=== PATIENT | female | born 1955 | race Caucasian/White ===

== ENCOUNTER 2019-09-23 09:10 | Inpatient (IN) | payer MEDICARE, MEDICAID ==
[~2019-09-23] VITALS: Ht 172.7 cm; Wt 69.8 kg
--- NOTE | ~2019-09-23 | OR ---
[facility] [address] [place], [place] [address] [place] DATE OF OPERATION: SURGEON: Radha Lua MD RECREATION PROGRAM COORDINATOR: Chidi Wills MD. PREOPERATIVE DIAGNOSES: Cystocele, rectocele, stress incontinence. POSTOPERATIVE DIAGNOSES: Cystocele, rectocele, stress incontinence with enterocele. PROCEDURES PERFORMED: Cystocele repair, sling procedure, cystoscopy, rectocele repair with enterocele resection. ANESTHESIA: Spinal with IV sedation. ESTIMATED BLOOD LOSS: 100 mL. DRAINS: Cobb catheter. PACKS: Vaginal. INDICATIONS AND FINDINGS: The patient is a 64-year-old female, 4, para 4, has been having increasing vaginal bulging and pressure as well as stress incontinence and desired surgical correction. At the time of surgery, she had a grade 2 cystocele and grade 2 rectocele. There was a little bit more uterine prolapse appreciated than when she was in the office, but it was not severe. At the time of her surgery, she did have an enterocele. DESCRIPTION OF PROCEDURE: The patient was prepped and draped in the dorsal lithotomy position. A weighted speculum was placed and the anterior wall of the vagina was grasped with Allis clamps and incised in the midline. This was done from the mid urethra down to the upper aspect of the cervix. The vaginal tissue was from the underlying tissue with a PATIENT NAME: DEBO RYAN OPERATIVE REPORT DATE OF : 53 REPORT #: [id number] PHYSICIAN: RADHA LUA MD PCP: GAMALIEL VINCENT MD REPORT IS CONFIDENTIAL AND NOT TO BE RELEASED WITHOUT AUTHORIZATION [facility] [address] [place], [place] [address] [place] combination of blunt and sharp dissection. The portion next to the urethra was taken out laterally behind the pubic bone as well. There was no evidence of really any pubovaginal fascia. It was very poor quality. Plication was done of this tissue in the midline with interrupted sutures of 0 Vicryl. Following this, there did appear to be good reduction of the defect. The sling was then placed with the trocars. Incisions were made over the obturator notches on each side with a knife. The trocars were then introduced at the lower most medial aspect of the notch. This was immediately taken behind the pubic bone and exiting into the upper aspect of the upper lateral aspect of the vaginal incision. This was done bilaterally. Following this, cystoscopy was done. She did receive IV fluorescein. The Cobb catheter was removed and the cystoscope placed. The 70-degree scope was used. There was quite a bit of bunching of the bladder inferiorly, though there was no obvious sutures seen. There was no evidence of any incursion of the trocars into the bladder. The ureters were seen and had free spillage of the fluorescein stained urine. The bladder was then overfilled in an effort to look at the very bottom of the irregularity in the posterior aspect and there were no sutures seen within the bladder at all. Had there was never any blood in the bladder as well. Following this, the cystoscopy was complete and the bladder drained and the Cobb catheter replaced. The sling was then attached to the trocars and was brought through both of the openings in the obturator notch. Care was taken to have appropriate tension in the mid urethra. The covering of the sling was then removed. Following this, the vaginal mucosa was trimmed a large amount as there was quite a bit of redundancy anteriorly. The vaginal mucosa was then closed with a running suture of 2-0 Vicryl from the mid urethra down to near the cervix. Following this, the rectocele repair was begun. A triangle of tissue was removed from the perineal body. The vaginal mucosa was then underlined undermined and incised in the midline to the apex of the vagina. At that point, however, the enterocele was entered. The vaginal mucosa was then from the underlying tissue with a combination of blunt and sharp dissection. The enterocele sac was from the vaginal apex and from the rectum. Following this, 2-0 chromic was used in a pursestring manner to close the enterocele sac and the excess excised sharply. Following this, traditional rectocele repair was done by plicating the levators in the midline. Interrupted sutures of 0 Vicryl were used for this. It appeared that there was good reduction of the defect at that point. A rectal examination was done, which revealed no sutures compromising the rectal lumen. The vaginal mucosa was then trimmed quite a bit. There was some excess near the apex, particularly on her right because of the enterocele resection. This was repaired separately with a running suture of the 2-0 Vicryl. The vaginal mucosa was then trimmed in the mid and lower portion quite a bit because of the redundancy. The vaginal mucosa was then closed with a running suture of the 2-0 Vicryl. Following this, the perineal body was rebuilt with interrupted sutures of the 2-0 Vicryl. The posterior fourchette was recreated with a running suture of the 2-0 Vicryl. The skin incisions were closed using with subcuticular sutures of the 2-0 Vicryl. The obturator notch incisions were closed with interrupted sutures of the 3-0 Vicryl Rapide. Following this, the vagina PATIENT NAME: DEBO RYAN OPERATIVE REPORT DATE OF : 53 REPORT #: [id number] PHYSICIAN: RADHA LUA MD PCP: GAMALIEL VINCENT MD REPORT IS CONFIDENTIAL AND NOT TO BE RELEASED WITHOUT AUTHORIZATION [facility] [address] [place] [id number] [place] was reexamined. There was no evidence of any ongoing bleeding. There was good length and caliber. The vaginal canal was then packed with Premarin-coated gauze. All sponge and needle counts were correct. She tolerated the procedure well and was taken to the recovery room in good condition. MD JESS Parr/MODL /[id number] cc: MD Dr. Luis A Alston Copies: CHIDI WILLS MD ~ PATIENT NAME: DEBO RYAN OPERATIVE REPORT DATE OF : 53 REPORT #: [id number] PHYSICIAN: RADHA LUA MD PCP: GAMALIEL VINCENT MD REPORT IS CONFIDENTIAL AND NOT TO BE RELEASED WITHOUT AUTHORIZATION
--- OUTSIDE RECORDS SUMMARY | ~2019-09-23 | XMS | Encounter Summary ---
Demographics + + + | Address | [address] | | | [place] [address] | + + + | Home Phone | | + + + | Preferred Language | Unknown | + + + | Marital Status | | + + + | Evangelical Affiliation | Unknown | + + + | Race | Unknown | + + + | Ethnic Group | Unknown | + + + Author + + + | Author | [facility] | | | and [place] | + + + | Organization | [facility] | | | and [place] | + + + | Address | Unknown | + + + | Phone | Unavailable | + + + Support + + +---------+ + | Name | Relationship | Address | Phone | + + +---------+ + | Tarun Castorena | ECON | Unknown | | + + +---------+ + Care Team Providers + +------+ + | Care Nutrition Representative Name | Role | Phone | + +------+ + PCP | Unavailable | + +------+ + Reason for Visit + + + | Reason | Comments | + + + | Procedure | change provider | + + + Encounter Details +--------+ + + + + | Date | Type | Department | Care Team | Description | +--------+ + + + + | 08/02/ | Telephone | [facility] | Josesito Sebastian MD | Procedure (change | | 2017 | | GASTROENTEROLOGY | [address], [place] | provider ) | | | | [address] [place] | [address] [place], [place] | | | | | [address] [place], [place] | [address] | | | | | [address] | | | | | | [phone] | | | +--------+ + + + + Social History + +-------+ +--------+------+ | Tobacco Use | Types | Packs/Day | Years | Date | | | | | Used | | + +-------+ +--------+------+ | Never Assessed | | | | | + +-------+ +--------+------+ + + + | Sex Assigned at | Date Recorded | | | | + + + | Not on file | | + + + + + + + | Job Start Date | Occupation | Industry | + + + + | Not on file | Not on file | Not on file | + + + + + + + + | Travel History | Travel Start | Travel End | + + + + + + | No recent travel history available. | + + documented as of this encounter Plan of Treatment Not on filedocumented as of this encounter Visit Diagnoses + + | Diagnosis | + + | Special screening for malignant neoplasms, colon | + + | Hx of colonic polyps Personal history of colonic polyps | + + documented in this encounter"
--- OUTSIDE RECORDS SUMMARY | ~2019-09-23 | XMS | Encounter Summary ---
Demographics + + + | Address | [address] | | | [place] [address] | + + + | Home Phone | | + + + | Preferred Language | Unknown | + + + | Marital Status | | + + + | Druze Affiliation | Unknown | + + + | Race | Unknown | + + + | Ethnic Group | Unknown | + + + Author + + + | Author | [facility] | | | and [place] | + + + | Organization | [facility] | | | and [place] | [...] Team Providers + +------+ + | Care Winding Department Supervisor Name | Role | Phone | + +------+ + | Jeny Owens NP | PCP | | + +------+ + Reason for Visit + + + | Reason | Comments | + + + | Constipation | | + + + Encounter Details +--------+ + + + + | Date | Type | Department | Care Team | Description | +--------+ + + + + | 10/30/ | Telephone | [facility] | Josesito Sebastian MD | Constipation | | 2017 | | GASTROENTEROLOGY | [address], [place] | | | | | [address] [place] | [address] [place], [place] | | | | | [address] [place], [place] | [address] | | | | | [address] | | | | | | [phone] | | | +--------+ + + + + Social History + + + +--------+------+ | Tobacco Use | Types | Packs/Day | Years | Date | | | | | Used | | + + + +--------+------+ | Current Every Day | Cigarettes | | | | | Smoker | | | | | + + + +--------+------+ + + +---------+ + | Alcohol Use | Drinks/Week | oz/Week | Comments | + + +---------+ + | No | | | | + + +---------+ + + + + | Sex Assigned at [...] filedocumented as of this encounter Visit Diagnoses Not on filedocumented in this encounter"
--- OUTSIDE RECORDS SUMMARY | ~2019-09-23 | XMS | Encounter Summary ---
Demographics + + + | Address | [address] | | | [place] [address] | + + + | Home Phone | | + + + | Preferred Language | Unknown | + + + | Marital Status | | + + + | Hinduism Affiliation | Unknown | + + + | Race | Unknown | + + + | Ethnic Group | Unknown | + + + Author + + + | Author | [facility] | | | and [place] | + + + | Organization | [facility] | | | and [place] [...] Team Providers + +------+ + | Care Right Of Way Buyer Name | Role | Phone | + +------+ + | Pcp, Prov Inactive | PCP | | + +------+ + Reason for Visit + + + | Reason | Comments | + + + | Appointment | | + + + Encounter Details +--------+ + + + + | Date | Type | Department | Care Team | Description | +--------+ + + + + | 07/20/ | Telephone | [facility] [place] | Harri, Josesito E, MD | Appointment | | 2017 | | GASTROENTEROLOGY | [address], [place] | | | | | [address] [place] | [address] [place], [place] | | | | | [address] [place], [place] | [address] | | | | | [address] | | | | | | [phone] | | | +--------+ + + + [...]
--- OUTSIDE RECORDS SUMMARY | ~2019-09-23 | XMS | Encounter Summary ---
Demographics + + + | Address | [address] | | | [place] [address] | + + + | Home Phone | | + + + | Preferred Language | Unknown | + + + | Marital Status | | + + + | Religion Affiliation | Unknown | + + + | Race | Unknown | + + + | Ethnic Group | Unknown | + + + Author + + + | Author | [facility] | | | and [place] | + + + | Organization | [facility] | | | and [place] [...] Team Providers + +------+ + | Care Supervisor Felling Bucking Name | Role | Phone | + +------+ + PCP | Unavailable | + +------+ + Reason for Visit + + + | Reason | Comments | + + + | Procedure | colon screen | + + + Encounter Details +--------+ + + + + | Date | Type | Department | Care Team | Description | +--------+ + + + + | 04/24/ | Telephone | [facility] | Андрей Yeung | Procedure (colon | | 2017 | | GASTROENTEROLOGY | MD [address] | screen ) | | | | [address] [place] | [address] [place] | | | | | [address] [place] | [place] [address] | | | | | [address] | [phone] | | | | | [phone] | | | +--------+ + + + [...] | Special screening for malignant neoplasms, colon - Primary | + + | Personal history of colonic polyps | + + | Hx of colonic polyps Personal history of colonic polyps | + + documented in this encounter"
--- OUTSIDE RECORDS SUMMARY | ~2019-09-23 | XMS | Encounter Summary ---
Demographics + + + | Address | [address] | | | [place] [address] | + + + | Home Phone | | + + + | Preferred Language | Unknown | + + + | Marital Status | | + + + | Faith Affiliation | Unknown | + + + | Race | Unknown | + + + | Ethnic Group | Unknown | + + + Author + + + | Author | [facility] | | | and [place] | + + + | Organization | [facility] | | | and [...] Team Providers + +------+ + | Care Health Care Facility Administrator Name | Role | Phone | + +------+ + PCP | Unavailable | + +------+ + Reason for Visit Auth/Cert +--------+--------+ + + + + | Status | Reason | Specialty | Diagnoses / | Referred By | Referred To | | | | | Procedures | Contact | Contact | +--------+--------+ + + + + | | | | Diagnoses | | | | | | | Special | | | | | | | screening | | | | | | | for | | | | | | | malignant | | | | | | | neoplasms, | | | | | | | colon | | | | | | | Personal | | | | | | | history of | | | | | | | colonic | | | | | | | polyps | | | | | | | Chronic | | | | | | | constipation | | | | | | | Blood in | | | | | | | stool | | | | | | | Special | | | | | | | screening | | | | | | | for | | | | | | | malignant | | | | | | | neoplasms, | | | | | | | colon | | | | | | | (Z12.11), | | | | | | | Personal | | | | | | | history of | | | | | | | colonic | | | | | | | polyps | | | | | | | (Z86.010); | | | | | | | Chronic | | | | | | | Constipation | | | | | | | (R19.7); | | | | | | | Blood in | | | | | | | Stool | | | | | | | (k92.1) | | | | | | | | | | | | | | Procedures | | | | | | | NE | | | | | | | COLONOSCOPY | | | | | | | FLX DX | | | | | | | W/COLLJ SPEC | | | | | | | WHEN PFRMD | | | | | | | NE | | | | | | | COLONOSCOPY | | | | | | | W/BIOPSY | | | | | | | SINGLE/MULTI | | | | | | | PLE NE | | | | | | | COLSC FLX | | | | | | | W/RMVL OF | | | | | | | TUMOR POLYP | | | | | | | LESION SNARE | | | | | | | TQ | | | | | | | COLONOSCOPY | | | +--------+--------+ + + + + Encounter Details +--------+---------+ + + + | Date | Type | Department | Care Team | Description | +--------+---------+ + + + | 05/17/ | Surgery | [facility] | Josesito Sebastian MD | COLONOSCOPY | | 2017 | | MED CTR [facility] INTRA OP | [address], [place] | | | | | [address] | [address] [place], [place] | | | | | [place], [place] | [address] | | | | | [address] | | | | | | [phone] | | | +--------+---------+ + + + Social History + + [...] + + documented as of this encounter Last Filed Vital Signs + + + + + | Vital Sign | Reading | Time Taken | Comments | + + + + + | Blood Pressure | 127/74 | 05/17/2017 2:15 PM | | | | | PDT | | + + + + + | Pulse | 64 | 05/17/2017 2:15 PM | | | | | PDT | | + + + + + | Temperature | 37 C (98.6 F) | 05/17/2017 11:30 AM | | | | | PDT | | + + + + + | Respiratory Rate | 14 | 05/17/2017 2:15 PM | | | | | PDT | | + + + + + | Oxygen Saturation | 99% | 05/17/2017 2:15 PM | | | | | PDT | | + + + + + | Inhaled Oxygen | - | - | | | Concentration | | | | + + + + + | Weight | 62.2 kg (137 lb 3.2 | 05/17/2017 11:30 AM | | | | oz) | PDT | | + + + + + | Height | 172.7 cm (5' 8") | 05/17/2017 11:30 AM | | | | | PDT | | + + + + + | Body Mass Index | 20.86 | 05/17/2017 11:30 AM | | | | | PDT | | + + + + + documented in this encounter Discharge Instructions Instructions Cici Koenig RN - 05/17/2017 Recovery After Procedural Sedation (Adult) You have been given medicine by vein to make you sleep during your surgery. This may have i ncluded both a pain medicine and sleeping medicine. Most of the effects have worn off. But y ou may still have some drowsiness for the next 6 to 8 hours. Home care Follow these guidelines when you get home: For the next 8 hours, you should be watched by a responsible adult. This person should m nicolette sure your condition is not getting worse. Don't drink any alcoholfor the next [address], operate dangerous machinery, or make important business or personal decisio nsduring the next 24 hours. Note: Your healthcare provider may tell you not to take any medicine by mouth for pain or s leep in the next 4 hours. These medicines may react with the medicines you were given in the hospital. This could cause a much stronger response than usual. Follow-up care Follow up with your healthcare provider if you are not alert and back to your usual level o f activity within 12 hours. When to seek medical advice Call your healthcare provider right away if any of these occur: Drowsiness gets worse Weakness or dizziness gets worse Repeated vomiting You can't be awakened Date Last Reviewed: 07/11/201619991238-4158 [employer]. [address] [place] [address], [place] [address]. All righ ts reserved. This information is not intended as a substitute for professional medical care. Always follow your healthcare professional's instructions. documented in this encounter Medications at Time of Discharge + +-----+ +---------+ + + | Medication | Sig | Dispensed | Refills | Start | End Date | | | | | | Date | | + +-----+ +---------+ + + | levothyroxine | | | 0 | 03/19/20 | | | (SYNTHROID, | | | | 17 | | | LEVOTHROID) 25 mcg | | | | | | | tablet | | | | | | + +-----+ +---------+ + + documented as of this encounter Plan of Treatment Not on filedocumented as of this encounter Procedures + +--------+ + + + | Procedure Name | Priori | Date/Time | Associated Diagnosis | Comments | | | ty | | | | + +--------+ + + + | COLONOSCOPY | | 05/17/2017 | Special screening | | | | | 12:31 PM | for malignant | | | | | PDT | neoplasms, colon | | | | | | (Z12.11), Personal | | | | | | history of colonic | | | | | | polyps (Z86.010); | | | | | | Chronic Constipation | | | | | | (R19.7); Blood in | | | | | | Stool (k92.1) | | + +--------+ + + + | COLONOSCOPY | Routin | 05/17/2017 | | Results for this | | | e | 12:21 PM | | procedure are in the | | | | PDT | | results section. | + +--------+ + + + | SURGICAL PATHOLOGY | Routin | 05/17/2017 | | Results for this | | EXAM | e | 12:00 AM | | procedure are in the | | | | PDT | | results section. | + +--------+ + + + documented in this encounter Results COLONOSCOPY (05/17/2017 12:21 PM PDT) + + | Specimen | + + | | + + + +--------- -----+ | Narrative | Performe d At | + +--------- -----+ | | [facility] | | GastroenterologyPatient Name: Porsha CastorenaProcedure Date: 05/17/2017 | PROVAT[place] N | | 12:21 PMMRN: [id number] #: [id number] of : | | | 4Admit Type: AmbulatoryAge: 62Room: [facility] 01Gender: FemaleNote | | | Status: FinalizedAttending MD: Josesito Sebastian , MDProcedure: | | | ColonoscopyIndications: Abnormal barium enemaProviders: | | | Josesito Sebastian MD, Radha Howell RN, Marisela | | | BLAS PinedaMedicines: Midazolam | | | 6 mg IV, Meperidine 100 mg IV, Oxygen 4 | | | liters/min nasocannulaComplications: No immediate complications. | | | Estimated blood loss: None.Procedure: Pre-Anesthesia | | | Assessment: - Prior to the procedure, a History and Physical was | | | performed, and patient medications, allergies and | | | sensitivities were reviewed. The patient's tolerance of | | | previous anesthesia was reviewed. - Prior to the procedure, a | | | History and Physical was performed, and patient medications and | | | allergies were reviewed. The patient is competent. The risks | | | and benefits of the procedure and the sedation options and | | | risks were discussed with the patient. All questions were | | | answered and informed consent was obtained. Patient identification and | | | proposed procedure were verified by the physician, the nurse | | | and the coordinate measuring machine technician in the endoscopy suite. Mental Status | | | Examination: alert and oriented. Airway Examination: normal | | | oropharyngeal airway and neck mobility and Mallampati Class II | | | (the uvula but not tonsillar pillars visualized). Respiratory | | | Examination: clear to auscultation. CV Examination: normal. | | | Prophylactic Antibiotics: The patient does not require | | | prophylactic antibiotics. Prior Anticoagulants: The patient has | | | taken no previous anticoagulant or antiplatelet agents. ASA Grade | | | Assessment: II - A patient with mild systemic disease. After | | | reviewing the risks and benefits, the patient was deemed in | | | satisfactory condition to undergo the procedure. The anesthesia | | | plan was to use moderate sedation / analgesia (conscious | | | sedation). Immediately prior to administration of medications, | | | the patient was re-assessed for adequacy to receive sedatives. | | | The heart rate, respiratory rate, oxygen saturations, blood | | | pressure, adequacy of pulmonary ventilation, and response to | | | care were monitored throughout the procedure. The physical | | | status of the patient was re-assessed after the procedure. - | | | After reviewing the risks and benefits, the patient was deemed in | | | satisfactory condition to undergo the procedure. - | | | Immediately prior to administration of medications, the patient was | | | re-assessed for adequacy to receive sedatives. - The heart | | | rate, respiratory rate, oxygen saturations, blood pressure, | | | adequacy of pulmonary ventilation, and response to care were monitored | | | throughout the procedure. - The physical status of the | | | patient was re-assessed after the procedure. After I obtained | | | informed consent, the scope was passed under direct vision. | | | Throughout the procedure, the patient's blood pressure, pulse, | | | and oxygen saturations were monitored continuously. The Colonoscope | | | was introduced through the anus and advanced to the cecum, | | | identified by the appendiceal orifice, ileocecal valve and | | | palpation. The colonoscopy was technically difficult and | | | complex due to significant looping and a tortuous colon. | | | Successful completion of the procedure was aided by using | | | manual pressure, straightening and shortening the scope to obtain | | | bowel loop reduction and using scope torsion. The patient tolerated | | | the procedure well. The quality of the bowel preparation was | | | adequate to identify polyps.Findings: The perianal and | | | digital rectal examinations were normal. Pertinent negatives | | | include normal sphincter tone and no palpable rectal lesions. | | | The sigmoid colon, descending colon and transverse colon were | | | significantly redundant. Two sessile polyps were found in the | | | proximal descending colon and distal ascending colon. The | | | polyps were small in size. These polyps were removed with a hot | | | snare. Resection and retrieval were complete. Verification of | | | patient identification for the specimen was done. Estimated | | | blood loss: none. The exam was otherwise without abnormality. | | | The retroflexed view of the distal rectum and anal verge was | | | normal and showed no anal or rectal abnormalities.Impression: | | | - Redundant colon. - Two small polyps in the proximal | | | descending colon and in the distal ascending colon, removed | | | with a hot snare. Resected and retrieved. - The examination was | | | otherwise normal. - The distal rectum and anal verge are normal | | | on retroflexion view.Recommendation: - Patient has a contact | | | number available for emergencies. The signs and symptoms of | | | potential delayed complications were discussed with the | | | patient. Return to normal activities tomorrow. Written discharge | | | instructions were provided to the patient. - Discharge | | | patient to home (ambulatory). - Mechanical soft diet for 3 days. | | | - Continue present medications. - No aspirin, ibuprofen, | | | naproxen, or other non-steroidal anti-inflammatory drugs for 7 | | | days after polyp removal. - Await pathology results. - | | | Repeat colonoscopy for surveillance based on pathology results and for | | | surveillance of multiple polyps. - Return to primary | | | care physician as previously scheduled. - Telephone GI clinic | | | for pathology results in 1 week. - Telephone GI clinic if | | | symptomatic.Josesito Sebastian MD05/17/2017 1:18:23 PMThis report has been | | | signed electronically.Number of Addenda: 0Note Initiated On: | | | 05/17/2017 12:21 PMScope Withdrawal Time: 0 hours 15 minutes 32 seconds | | | Total Procedure Duration: 0 hours 24 minutes 14 seconds Scope In: | | | 12:42:58 PMScope Out: 1:07:12 PM [facility] | | | [place], [address] [place] [address] | | | anti-inflammatory drugs for 7 days after polyp removal. | | | - Await pathology results. | | | - Repeat colonoscopy for surveillance based on pathology results and for | | | surveillance of multiple polyps. | | | - Return to primary care physician as previously scheduled. | | | - Telephone GI clinic for pathology results in 1 week. | | | - Telephone GI clinic if symptomatic. | | |Josesito Sebastian MD | | |05/17/2017 1:18:23 PM | | |This report has been signed electronically. | | |Number of Addenda: 0 | | |Note Initiated On: 05/17/2017 12:21 PM | | |Scope Withdrawal Time: 0 hours 15 minutes 32 seconds | | |Total Procedure Duration: 0 hours 24 minutes 14 seconds | | |Scope In: 12:42:58 PM | | |Scope Out: 1:07:12 PM | | | [facility], [address] [place] [address] | | | [id number] | | + +--------- -----+ + +---------+ + + | Performing | Address | City/State/Zipcode | Phone Number | | Organization | | | | + +---------+ + + | [facility] | | | | + +---------+ + + Surgical Pathology Exam (05/17/2017 12:00 AM PDT) + + | Specimen | + + | | + + + + + | Narrative | Performed At | + + + | SPECIMEN(S): A ASCENDING COLON POLYP SPECIMEN(S): B DESCENDING | [facility] | | COLON POLYP SPECIMEN SOURCE: A. ASCENDING COLON POLYP B. DESCENDING | [facility] | | COLON POLYP CLINICAL HISTORY: Z12.11 (encounter for screening for | | | malignant neoplasm of colon), Z86.010 (personal history of colonic | | | polyps), R19.7 (diarrhea, unspecified), K92.1 (melena) MICROSCOPIC | | | DESCRIPTION: Histologic sections of all submitted blocks are examined | | | by light microscopy. These findings, together with the gross | | | examination, support the pathologic diagnosis. FINAL PATHOLOGIC | | | DIAGNOSIS: A. Colon, ascending polyp, biopsy: - Tubular adenoma. | | | B. Colon, descending polyp, biopsy: - Hyperplastic polyp. | | | CLR:[facility]:C2NR GROSS DESCRIPTION: The specimen is received in two | | | parts. A. The specimen is labeled "Porsha Castorena" and | | | designated "ascending colon polyp" on the requisition. Received in | | | formalin is one red colored tissue fragment, it measures 0.3 x 0.5 cm. | | | The specimen is inked in blue and bisected, all into (A1). B. The | | | specimen is labeled "Raffaele, Porsha Annemarie" and designated "descending | | | colon polyp" on the requisition. Received in formalin is one pink | | | colored tissue fragment, it measures 0.4 x 0.55 cm, all into (B1). | | | yt:CLR:[facility] PERFORMING LABORATORY: Tissue processing and slide | | | preparation were performed by [facility], [address] [place] [address], | | | [address], [place] [address] (Computer Methods Analyst: Mook aKng M.D. | | | [place]#: [id number]). Professional interpretation was performed by | | | [facility], [address] [place] [address], [address], [place] [address] | | | (Computer Methods Analyst: Mook Kang M.D.; [facility]#: [id number]). | | | Diagnostician: Stuart Bruno MD Pathologist Electronically | | | Signed 05/18/2017 | | + + + + +---------+ + + | Performing | Address | City/State/[facility] Centercode | Phone Number | | Organization | | | | + +---------+ + + | [facility] | | | | | [facility] | | | | + +---------+ + + documented in this encounter Visit Diagnoses Not on filedocumented in this encounter Administered Medications + +---------+ +------+-------+--------+ | Medication Order | MAR | Action | Dose | Rate | Site | | | Action | Date | | | | + +---------+ +------+-------+--------+ | lactated ringers (LR) infusion | New Bag | 05/17/20 | | 100 | Right | | at 100 mL/hr, Intravenous, | | 17 12:07 | | mL/hr | Arm | | CONTINUOUS, Starting Cindy 05/17/17 | | PM PDT | | | | | at 1230, Pre-op | | | | | | + +---------+ +------+-------+--------+ +---+---+ | | | +---+---+ + +-------+ +--------+---+---+ | meperidine (DEMEROL) 100 mg/mL | Given | 05/17/20 | 100 mg | | | | injection PRN, Starting Cindy | | 17 12:35 | | | | | 05/17/17 at 1235 | | PM PDT | | | | + +-------+ +--------+---+---+ +---+---+ | | | +---+---+ + +-------+ +------+---+---+ | midazolam (VERSED) 5 mg/mL | Given | 05/17/20 | 1 mg | | | | injection PRN, Starting Cindy | | 17 12:48 | | | | | 05/17/17 at 1238 | | PM PDT | | | | + +-------+ +------+---+---+ +-------+ +------+---+---+ | Given | 05/17/20 | 1 mg | | | | | 17 12:45 | | | | | | PM PDT | | | | +-------+ +------+---+---+ | Given | 05/17/20 | 2 mg | | | | | 17 12:43 | | | | | | PM PDT | | | | +-------+ +------+---+---+ + +---+ | | | + +---+ | ondansetron (ZOFRAN) injection | | | 4 mg 4 mg, Oral, EVERY 4 HOURS | | | PRN, Nausea, Vomiting, Starting | | | Cindy 05/17/17 at 1317, | | | Recovery/Phase I | | + +---+ | | | + +---+ documented in this encounter
--- OUTSIDE RECORDS SUMMARY | ~2019-09-23 | XMS | Encounter Summary ---
Demographics + + + | Address | [address] | | | [place] [address] | + + + | Home Phone | | + + + | Preferred Language | Unknown | + + + | Marital Status | | + + + | Catholic Affiliation | Unknown | + + + | Race | Unknown | + + + | Ethnic Group | Unknown | + + + Author + + + | Author | [facility] | | | and [place] | + + + | Organization | [facility] | | | and [place] [...] Team Providers + +------+ + | Care Inspection Engineer Name | Role | Phone | + [...] | | | | | | | [place] | | | | | | | COLONOSCOPY | | | | | | | FLX DX | | | | | | | W/COLLJ SPEC | | | | | | | WHEN PFRMD | | | | | | | [place] | | | | | | | COLONOSCOPY | | | | | | | W/BIOPSY | | | | | | | SINGLE/MULTI | | | | | | | PLE [place] | | | | | | | COLSC FLX | | | | | | | W/RMVL OF | | | | | | | TUMOR POLYP | | | | | | | LESION SNARE | | | | | | | TQ | | | | | | | COLONOSCOPY | | | +--------+--------+ + + + + Encounter Details +--------+ + + + + | Date | Type | Department | Care Team | Description | +--------+ + + + + | 05/17/ | Hospital | [facility] | Josesito Sebastian MD | Special screening | | 2017 | Encounter | MED CTR MP INTRA OP | [address], [place] | for malignant | | | | [address] | [address] [place], [place] | neoplasms, colon | | | | [place], [place] | [address] | (Primary Dx); Hx of | | | | [address] | | colonic polyps | | | | [phone] | | | +--------+ + + + [...] documented in this encounter Discharge Instructions Instructions Ccii Koenig RN - 05/17/2017 Recovery After Procedural [...] You can't be awakened Date Last Reviewed: 07/11/201619997284-1592 [employer]. [address] [place], [place] [address]. All righ ts reserved. This information is [...] At | + +--------- -----+ | | [facility] | | GastroenterologyPatient Name: Porsha RamosgraceProcednanette Date: 05/17/2017 | PROVATIO N | | 12:21 PMMRN: [id number] #: [id number] of : | | | 4Admit Type: AmbulatoryAge: 62[facility]Gender: FemaleNote | | | Status: FinalizedAttending MD: PATRIC Bardalesrocedure: | | | ColonoscopyIndications: Abnormal barium enemaProviders: [...] the nurse | | | and the hydraulic technician in the endoscopy suite. Mental Status [...] | | 12:42:58 PMScope Out: 1:07:12 PM [facility] | | | [place], [address] [place] [address] | | | anti-inflammatory drugs for 7 [...] |Scope Out: 1:07:12 PM | | | [facility], [address] [place] | | | [address] | | + +--------- -----+ + +---------+ [...] ASCENDING COLON POLYP SPECIMEN(S): B DESCENDING | [facility] | | COLON POLYP SPECIMEN SOURCE: [...] biopsy: - Hyperplastic polyp. | | | CLR:[facility]:C2NR GROSS DESCRIPTION: The specimen is received [...] The | | | specimen is labeled "[place], Porsha Annemarie" and designated "descending | | | colon polyp" on the requisition. Received in formalin is one pink | | | colored tissue fragment, it measures 0.4 x 0.55 cm, all into (B1). | | | yt:CLR:[facility] PERFORMING LABORATORY: Tissue processing and slide | | | preparation were performed by [facility], | | | [address], [place] [address] (Nutrition And Dietetics Instructor: Mook Kang M.D. | | | CLIA#: [id number]). Professional interpretation was performed by | | | [facility], [address], [address], [place] [address] | | | (Nutrition And Dietetics Instructor: Mook Kang M.D.; CLIA#: [id number]). | | | Diagnostician: Stuart Bruno MD [...] + documented in this encounter Visit Diagnoses + + | Diagnosis | + + | Special screening for malignant neoplasms, colon - Primary | + + | Hx of colonic polyps Personal history of colonic polyps | + + documented in this encounter Administered Medications + +---------+ [...] | Arm | | CONTINUOUS, Starting Cindy 8/24/17 | | PM PDT | | | [...] PRN, Nausea, Vomiting, Starting | | | [facility] 05/17/17 at 1317, | | | Recovery/Phase I | | + +---+ | | | + +---+ documented in this encounter
--- OUTSIDE RECORDS SUMMARY | ~2019-09-23 | XMS | Encounter Summary ---
Demographics + + + | Address | [address] | | | [place] [address] | + + + | Home Phone | | + + + | Preferred Language | Unknown | + + + | Marital Status | | + + + | Restorationist Affiliation | Unknown | + + + | Race | Unknown | + + + | Ethnic Group | Unknown | + + + Author + + + | Author | [facility] | | | and [place] | + + + | Organization | [facility] | | [...] Team Providers + +------+ + | Care Livestock Auctioneer Name | Role | Phone | + [...] [place] | | | | | [address] | [place] [address] | | | | | [address] | [phone] | | | | | [phone] | | | +--------+ + + + [...]
--- OUTSIDE RECORDS SUMMARY | ~2019-09-23 | XMS | Encounter Summary ---
Demographics + + + | Address | [address] | | | [place] [address] | + + + | Home Phone | | + + + | Preferred Language | Unknown | + + + | Marital Status | | + + + | Druze Affiliation | Unknown | + + + | Race | Unknown | + + + | Ethnic Group | Unknown | + + + Author + + + | Author | [facility] | | | and [place] | + + + | Organization | [facility] | | | and [place] [...] Team Providers + +------+ + | Care Industrial Service Technician Name | Role | Phone | + [...] | | | | | | | MD | | | | | | | COLONOSCOPY | | | | | | | FLX DX | | | | | | | W/COLLJ SPEC | | | | | | | WHEN PFRMD | | | | | | | MD | | | | | | | COLONOSCOPY | | | | | | | W/BIOPSY | | | | | | | SINGLE/MULTI | | | | | | | PLE MD | | | | | | | [...] + + | 05/17/ | Hospital | [facility] | Josesito Sebastian MD | Special screening | | 2017 | Encounter | MED CTR MP INTRA OP | [address], [place] | for malignant | | | | [address] | [address] [place], [place] | neoplasms, colon | | | | [place], [place] | [address] | (Primary Dx); Hx of | | | | [address] | | colonic polyps | | | | [phone] | | | +--------+ + + + [...] You can't be awakened Date Last Reviewed: 07/11/201619999331-[address] [employer] [place], [place] [address]. All righ ts reserved. This information is [...] | PROVATIO N | | 12:21 PMMRN: [id number] #: [id number] of : | | | 4Admit Type: AmbulatoryAge: 62[facility]Gender: FemaleNote | | | [...] the nurse | | | and the geotechnicial properties technician in the endoscopy suite. Mental Status [...] | | 12:42:58 PMScope Out: 1:07:12 PM [facility] | | | [place], [address] [place] [address] | | | anti-inflammatory drugs for 7 [...] Out: 1:07:12 PM | | | [facility], [address] [place] | | | [address] | | + +--------- -----+ + +---------+ [...] biopsy: - Hyperplastic polyp. | | | CLR:[facility]:C2NR GROSS DESCRIPTION: The specimen is received in [...] cm, all into (B1). | | | yt:CLR:[facility] PERFORMING LABORATORY: Tissue processing and slide | | | preparation were performed by [facility], | | | [address], [place] [address] (Basket Bottom Machine Operator: Mook Kang M.D. | | | CLIA#: [id number]). Professional interpretation was performed by | | | [facility], [address], [address], [place] [address] | | | (Basket Bottom Machine Operator: Mook Kang M.D.; CLIA#: [id number]). | | | Diagnostician: Stuart Bruno MD [...] PRN, Nausea, Vomiting, Starting | | | [facility] 05/17/17 at 1317, | | | Recovery/Phase I | | + +---+ | | | + +---+ documented in this encounter
--- OUTSIDE RECORDS SUMMARY | ~2019-09-23 | XMS | Encounter Summary ---
Demographics + + + | Address | [address] | | | [place] [address] | + + + | Home Phone | | + + + | Preferred Language | Unknown | + + + | Marital Status | | + + + | Scientology Affiliation | Unknown | + + + | Race | Unknown | + + + | Ethnic Group | Unknown | + + + Author + + + | Author | [facility] | | | and [place] | + + + | Organization | [facility] | | | and [place] [...] Team Providers + +------+ + | Care Roller Coaster Designer Name | Role | Phone | + +------+ + PCP | Unavailable | + +------+ + Encounter Details +--------+ + + + + | Date | Type | Department | Care Team | Description | +--------+ + + + + | 05/02/ | Abstract | [facility] [place] | Андрей Yeung | | | 2016 | | GASTROENTEROLOGY | MD Jerrod [address] | | | | | [address] [place] | [address] [place] | | | | | [address] [place] | [place] [address] | | | | | [address] | [phone] | | | | | [phone] | | | +--------+ + + + [...] + + + | Blood Pressure | - | - | | + + + + + | Pulse | - | - | | + + + + + | Temperature | - | - | | + + + + + | Respiratory Rate | - | - | | + + + + + | Oxygen Saturation | - | - | | + + + + + | Inhaled Oxygen | - | - | | | Concentration | | | | + + + + + | Weight | 62.8 kg (138 lb 6.4 | 05/02/2017 2:27 PM | | | | oz) | PDT | | + + + + + | Height | 174.6 cm (5' 8.75") | 05/02/2017 2:27 PM | | | | | PDT | | + + + + + | Body Mass Index | 20.59 | 05/02/2017 2:27 PM | | | | | PDT | | + + + + + documented in this encounter Plan of Treatment Not on filedocumented as of this encounter Visit Diagnoses Not on filedocumented in this encounter
--- OUTSIDE RECORDS SUMMARY | ~2019-09-23 | XMS | Encounter Summary ---
Demographics + + + | Address | [address] | | | [place] [address] | + + + | Home Phone | | + + + | Preferred Language | Unknown | + + + | Marital Status | | + + + | Catholic Affiliation | Unknown | + + + | Race | Unknown | + + + | Ethnic Group | Unknown | + + + Author + + + | Author | [facility] | | | and [place] | + + + | Organization | [facility] | | | and [...] Team Providers + +------+ + | Care Parts Counter Associate Name | Role | Phone | + [...] | | | | | | | [place] | | | | | | | COLONOSCOPY | | | | | | | FLX DX | | | | | | | W/COLLJ SPEC | | | | | | | WHEN PFRMD | | | | | | | [place] | | | | | | | COLONOSCOPY | | | | | | | W/BIOPSY | | | | | | | SINGLE/MULTI | | | | | | | PLE OK | | | | | | | [...] + + | 05/17/ | Surgery | [facility] | Josesito Sebastian MD | COLONOSCOPY | | 2017 | | MED CTR MP INTRA OP | [address], [place] | | | | | [address] | [address] [place], [place] | | | | | [place], [place] | [address] | | | | | [address] | | | | | | [phone] | | | +--------+---------+ + + + [...] You can't be awakened Date Last Reviewed: 07/11/201619999988-4054 [employer]. [address] [place] [address], [place] [address]. All righ ts reserved. This information is [...] | PROVATIO N | | 12:21 PMMRN: [id number] #: [id number] of : | | | 4Admit Type: AmbulatoryAge: 62Room: [facility] 01Gender: FemaleNote | | | Status: FinalizedAttending [...] the nurse | | | and the lighting technician in the endoscopy suite. Mental Status [...] | | 12:42:58 PMScope Out: 1:07:12 PM [facility] | | | [place], [address] [place] [address] | | | anti-inflammatory drugs for 7 [...] |Scope Out: 1:07:12 PM | | | [facility], [address] [place] [address] | | | [id number] | | + +--------- -----+ + +---------+ [...] ASCENDING COLON POLYP SPECIMEN(S): B DESCENDING | [facility] | | COLON POLYP SPECIMEN SOURCE: [...] biopsy: - Hyperplastic polyp. | | | CLR:[facility]:C2NR GROSS DESCRIPTION: The specimen is received in [...] cm, all into (B1). | | | yt:CLR:[facility] PERFORMING LABORATORY: Tissue processing and slide | | | preparation were performed by [facility], [address] [place] [address], | | | [address], [place] [address] (Curling Machine Operator: Mook Kang M.D. | | | [place]#: [id number]). Professional interpretation was performed by | | | [facility], [address] [place] [address], [address], [place] [address] | | | (Curling Machine Operator: Mook Kang M.D.; [facility]#: [id number]). | | | Diagnostician: Stuart Bruno MD Pathologist Electronically | | | Signed 05/18/2017 | | + + + + +---------+ + + | Performing | Address | City/State/[facility] Cent[facility]ode | Phone Number | | Organization [...]
--- OUTSIDE RECORDS SUMMARY | ~2019-09-23 | XMS | Encounter Summary ---
Demographics + + + | Address | [address] | | | [place] [address] | + + + | Home Phone | | + + + | Preferred Language | Unknown | + + + | Marital Status | | + + + | Gnosticist Affiliation | Unknown | + + + | Race | Unknown | + + + | Ethnic Group | Unknown | + + + Author + + + | Author | [facility] | | | and [place] | + + + | Organization | [facility] | | | and [place] | [...] Team Providers + +------+ + | Care Box Liner Name | Role | Phone | + +------+ + PCP | Unavailable | + +------+ + Encounter Details +--------+ + + + + | Date | Type | Department | Care Team | Description | +--------+ + + + + | 05/02/ | Abstract | [facility] [place] | Андрей Yeung | | | 2016 | | GASTROENTEROLOGY | MD [address] | | | | | [address] [place] | [address] [place] | | | | | [address] [place] | [place] [address] | | | | | [address] | [phone] | | | | | [phone] | | | +--------+ + + + [...]
--- OUTSIDE RECORDS SUMMARY | ~2019-09-23 | XMS | Clinical Summary ---
Demographics + + + | Address | [address] | | | [place] [address] | + + + | Home Phone | | + + + | Preferred Language | Unknown | + + + | Marital Status | | + + + | Anabaptism Affiliation | Unknown | + + + | Race | Unknown | + + + | Ethnic Group | Unknown | + + + Author + + + | Author | [facility] | | | and [place] | + + + | Organization | [facility] | | | and [place] | [...] Team Providers + +------+ + | Care Blindstitch Lining Feller Name | Role | Phone | + +------+ + | Jeny Owens NP | PCP | | + +------+ + Allergies No Known Allergies Medications + +-----+ +---------+------+------+-------+ | Medication | Sig | Dispensed | Refills | Star | End | Statu | | | | | | t | Date | s | | | | | | Date | | | + +-----+ +---------+------+------+-------+ | levothyroxine | | | 0 | 06/2 | | Activ | | (SYNTHROID, | | | | 6/20 | | e | | LEVOTHROID) 25 mcg | | | | 17 | | | | tablet | | | | | | | + +-----+ +---------+------+------+-------+ Active Problems + + + | Problem | Noted Date | + + + | Constipation | 05/16/2017 | + + + | Special screening for malignant neoplasms, colon | 04/24/2017 | + + + | Hx of colonic polyps | 04/24/2017 | + + + Social History + + [...] recent travel history available. | + + Last Filed Vital Signs + + + [...] | | + + + + + Plan of Treatment + + + + + | Health Maintenance | Due Date | Last Done | Comments | + + + + + | Vaccine: | | | | | Dtap/Tdap/Td (1 - | 5 | | | | Tdap) | | | | + + + + + | Vaccine: Zoster (1 | | | | | of 2) | 4 | | | + + + + + | Breast Cancer | | | | | Screening | 9 | | | + + + + + | Vaccine: | | | | | Pneumococcal 65+ (1 | 9 | | | | of 2 - PCV13) | | | | + + + + + | Vaccine: Influenza | | | | | (#1) | 9 | | | + + + + + Results Not on filefrom Last 3 Months Insurance + +--------+ +--------+ +---------+--------+ | Payer | Benefi | Subscriber | Effect | Phone | Address | Type | | | t Plan | ID | radha | | | | | | / | | Dates | | | | | | Group | | | | | | + +--------+ +--------+ +---------+--------+ | [employer] | [employer] | [id number] | | [phone] | | Medica | | MEDICAID HMO | HEALTH | | 017-Pr | 1 | | id | | | MDCD | | esent | | | | | | [place]MO [place] | | | | | | + +--------+ +--------+ +---------+--------+ + +--------+ +--------+ + + | Guarantor Name | Accoun | Relation to | Date | Phone | Billing Address | | | t Type | Patient | of | | | | | | | | | | + +--------+ +--------+ + + | Porsha Castorena Annemarie | Person | Self [birth year] | [address] | | | al/Fam | | 1955 | [phone] | [place] [address] | | | baljit | | | 9 (Home) | | + +--------+ +--------+ + + Advance Directives + + + + + | Type | Date Recorded | Patient | Explanation | | | | Training Professional | | + + + + + | Power of | | | | | Sql Data Architect | | | | + + + + + | Advance | 05/16/2017 11:54 | | | | Directive | AM | | | + + + + +
--- OUTSIDE RECORDS SUMMARY | ~2019-09-23 | XMS | Encounter Summary ---
Demographics + + + | Address | [address] | | | [place] [address] | + + + | Home Phone | | + + + | Preferred Language | Unknown | + + + | Marital Status | | + + + | Restoration Affiliation | Unknown | + + + | Race | Unknown | + + + | Ethnic Group | Unknown | + + + Author + + + | Author | [facility] | | | and [place] | + + + | Organization | [facility] | | | and [...] Team Providers + +------+ + | Care Dough Catcher Name | Role | Phone | + [...] + + | 08/02/ | Telephone | [facility] | Josesito Sebastian MD | Procedure (change | | 2017 | | GASTROENTEROLOGY | [address], [place] | provider ) | | | | [address] [place] | [address] [place], [place] | | | | | [address] [place], [place] | [address] | | | | | [address] | | | | | | [phone] | | | +--------+ + + + [...]
--- OUTSIDE RECORDS SUMMARY | ~2019-09-23 | XMS | Clinical Summary ---
Demographics + + + | Address | [address] | | | [place] [address] | + + + | Home Phone | | + + + | Preferred Language | Unknown | + + + | Marital Status | | + + + | Methodist Affiliation | Unknown | + + + | Race | Unknown | + + + | Ethnic Group | Unknown | + + + Author + + + | Author | [facility] | | | and [place] | + + + | Organization | [facility] | | | and [place] [...] Team Providers + +------+ + | Care Chief Engineer Name | Role | Phone | [...] | [employer] | MODA | [id number] | | [phone] | | Medica | [...] | 1955 | [phone] | [place] [address] | | | baljit | | | 9 (Home) | | + +--------+ +--------+ + + Advance Directives + + + + + | Type | Date Recorded | Patient | Explanation | | | | Chemical Technician | | + + + + + | Power of | | | | | Aircraft Engine Installer | | | | + + + + + | Advance | 05/16/2017 11:54 | | | | Directive | AM | | | + + + + +
--- OUTSIDE RECORDS SUMMARY | ~2019-09-23 | XMS | Encounter Summary ---
Demographics + + + | Address | [address] | | | [place] [address] | + + + | Home Phone | | + + + | Preferred Language | Unknown | + + + | Marital Status | | + + + | Rastafarian Affiliation | Unknown | + + + | Race | Unknown | + + + | Ethnic Group | Unknown | + + + Author + + + | Author | [facility] | | | and [place] | + + + | Organization | [facility] | | | and [...] Team Providers + +------+ + | Care Deep Fryer Assembler Name | Role | Phone | + [...] 2017 | | GASTROENTEROLOGY | [address], [place] | | | | | [address] [place] | [address] [place], [place] | | | | | [address] [place], [place] | [address] | | | | | [address] | | | | | | [phone] | | | +--------+ + + + [...]
--- OUTSIDE RECORDS SUMMARY | ~2019-09-23 | XMS | Encounter Summary ---
Demographics + + + | Address | [address] | | | [place] [address] | + + + | Home Phone | | + + + | Preferred Language | Unknown | + + + | Marital Status | | + + + | Restoration Affiliation | Unknown | + + + | Race | Unknown | + + + | Ethnic Group | Unknown | + + + Author + + + | Author | [facility] | | | and [place] | + + + | Organization | [facility] | | | and [...] Team Providers + +------+ + | Care Manager Epic Name | Role | Phone | + +------+ + PCP | Unavailable | + +------+ + Encounter Details +--------+ + + + + | Date | Type | Department | Care Team | Description | +--------+ + + + + | 04/26/ | Episode | [facility] [place] | Jody Osman | | | 2017 | Changes | GASTROENTEROLOGY | M, RN | | | | | [address] | | | | | | [address] [place] | | | | | | [address] | | | | | | [phone] | | | +--------+ + + + [...]
--- OUTSIDE RECORDS SUMMARY | ~2019-09-23 | XMS | Encounter Summary ---
Demographics + + + | Address | [address] | | | [place] [address] | + + + | Home Phone | | + + + | Preferred Language | Unknown | + + + | Marital Status | | + + + | Quaker Affiliation | Unknown | + + + | Race | Unknown | + + + | Ethnic Group | Unknown | + + + Author + + + | Author | [facility] | | | and [place] | + + + | Organization | [facility] | | | and [place] [...] Team Providers + +------+ + | Care Quality Assurance Lead Name | Role | Phone | + +------+ + | Pcp, Prov Inactive | PCP | | + +------+ + Reason for Visit + + + | Reason | Comments | + + + | Results, Pathology | Colon polyps, next colonoscopy in 5 years | + + + Encounter Details +--------+ + + + + | Date | Type | Department | Care Team | Description | +--------+ + + + + | 05/24/ | Telephone | [facility] [place] | Josesito Sebastian MD | Results, Pathology | | 2017 | | GASTROENTEROLOGY | [address], [place] | (Colon polyps, next | | | | [address] [place] | [address] [place] | colonoscopy in 5 | | | | [address] [place] | [address] | years) | | | | [address] | | | | | | [phone] | | | +--------+ + + + [...]
--- OUTSIDE RECORDS SUMMARY | ~2019-09-23 | XMS | Encounter Summary ---
Demographics + + + | Address | [address] | | | [place] [address] | + + + | Home Phone | | + + + | Preferred Language | Unknown | + + + | Marital Status | | + + + | Yarsanism Affiliation | Unknown | + + + | Race | Unknown | + + + | Ethnic Group | Unknown | + + + Author + + + | Author | [facility] | | | and [place] | + + + | Organization | [facility] | | | and [place] [...] + +------+ + | Care Parts Counter Sales Person Name | Role | Phone | + +------+ + PCP | Unavailable | + +------+ + Encounter Details +--------+ + + + + | Date | Type | Department | Care Team | Description | +--------+ + + + + | 04/25/ | Episode | [facility] [place] | Kay Schuster | | | 2017 | Changes | GASTROENTEROLOGY | L, RN | | | | | [address] | | | | | | [address] [place] | | | | | | [address] | | | | | | [phone] | | | +--------+ + + + [...]
--- OUTSIDE RECORDS SUMMARY | ~2019-09-23 | XMS | Encounter Summary ---
Demographics + + + | Address | [address] | | | [place] [address] | + + + | Home Phone | | + + + | Preferred Language | Unknown | + + + | Marital Status | | + + + | Oriental Orthodox Affiliation | Unknown | + + + | Race | Unknown | + + + | Ethnic Group | Unknown | + + + Author + + + | Author | [facility] | | | and [place] | + + + | Organization | [facility] | [...] Team Providers + +------+ + | Care Organizational Effectiveness Consultant Name | Role | Phone | + [...] [place] | | | | | | [address] | | | | | | [phone] | | | +--------+ + + + [...]
--- OUTSIDE RECORDS SUMMARY | ~2019-09-23 | XMS | Encounter Summary ---
Demographics + + + | Address | [address] | | | [place] [address] | + + + | Home Phone | | + + + | Preferred Language | Unknown | + + + | Marital Status | | + + + | Jewish Affiliation | Unknown | + + + | Race | Unknown | + + + | Ethnic Group | Unknown | + + + Author + + + | Author | [facility] | | | and [place] | + + + | Organization | [facility] | | | and [...] Team Providers + +------+ + | Care Maintenance Mechanic Supervisor Name | Role | Phone | [...] [place] | | | | | | [address] | | | | | | [phone] | | | +--------+ + + + [...]
--- OUTSIDE RECORDS SUMMARY | ~2019-09-23 | XMS | Encounter Summary ---
Demographics + + + | Address | [address] | | | [place] [address] | + + + | Home Phone | | + + + | Preferred Language | Unknown | + + + | Marital Status | | + + + | Yazdanism Affiliation | Unknown | + + + | Race | Unknown | + + + | Ethnic Group | Unknown | + + + Author + + + | Author | [facility] | | | and [place] | + + + | Organization | [facility] | | | and [...] Team Providers + +------+ + | Care Carnallite Plant Operator Name | Role | Phone | + [...] 2017 | | GASTROENTEROLOGY | [address], [place] | (Colon polyps, next | | | | [address] [place] | [address] [place] | colonoscopy in 5 | | | | [address] [place] | [address] | years) | | | | [address] | | | | | | [phone] | | | +--------+ + + + [...]
--- OUTSIDE RECORDS SUMMARY | ~2019-09-23 | XMS | Encounter Summary ---
Demographics + + + | Address | [address] | | | [place] [address] | + + + | Home Phone | | + + + | Preferred Language | Unknown | + + + | Marital Status | | + + + | Sikhism Affiliation | Unknown | + + + | Race | Unknown | + + + | Ethnic Group | Unknown | + + + Author + + + | Author | [facility] | | | and [place] | + + + | Organization | [facility] | | [...] Team Providers + +------+ + | Care Drawbridge Tender Name | Role | Phone | + [...] 2017 | | GASTROENTEROLOGY | [address], [place] | | | | | [address] [place] | [address] [place], [place] | | | | | [address] [place], [place] | [address] | | | | | [address] | | | | | | [phone] | | | +--------+ + + + [...]
[2019-09-29] MEDS ORDERED: SYNTHROID25 MCG PO (14:42)
--- NOTE | 2019-10-08 09:42 | NUR ---
10/08/19 0942 Chantelle Souza 0929-PATIENT ARRIVED TO PACU ON 6L NC RR EVEN. REACTIVE TO VERBAL STIMULI OPENING EYES. SR. FAY PAD TO VAGINA CDI. DALTON CATHETER DRAINING YELLOW URINE. IVF INFUSING. SPINAL LEVEL AT T10 UNABLE TO WIGGLE TOES. PLACED ON 4L NC. 0940-PATIENT REPORTS NAUSEA MEDICATED PER EMAR. DR. RANKIN AT BEDSIDE. DENIES PAIN ENCOURAGED TO REST CLOSES EYES.
--- NOTE | 2019-10-08 11:03 | NUR ---
PT TO FLOOR VIA STRETCHER WITH BLAS RODRÍGUEZ. PT SLIGHTLY TEARFUL ABOUT LEAVING ANNE, STATES SHE WAS WONDERFUL. PT PUT DENTURES BACK IN. PT TALKATIVE AND DENIES PAIN YET. ASKED APPROP QUESTIONS REGARDING MEDICATIONS. FAY PAD CDI.
--- NOTE | 2019-10-08 11:37 | NUR ---
CALLED DR RANKIN REGARDING PT HAVING HEADACHE AND WOULD LIKE THE MOTRIN EARLY. SHE OKAYED. PT THEN HAD SOME NAUSEA. CRACKERS,BROTH, JELLO, AND WATER AT BEDSIDE. ADMINISTERED SMALL DOSE PHENEGREN ON PUMP.; WILL MONITOR.
--- NOTE | 2019-10-08 14:49 | NUR ---
PT GIVEN SCHEDULED ANCEF, BENEDRYL FOR ITCHING AND MORPHINE FOR PAIN. RATES 8\10.
--- NOTE | 2019-10-08 15:15 | NUR ---
Bedside report received by BLAS Reid. Orders acknowledged.
--- NOTE | 2019-10-08 15:45 | NUR ---
Patient reports pain of 8/10, prn pain medication given (see MAR).
--- NOTE | 2019-10-08 16:53 | NUR ---
Spoke with Porsha. She is hyper. Talking rapidly. Lives in [place], son Tarun and his assist her. States she is close to her daughter in law. States she is semiretired, works at the [employer]. States she doesn't recognize me from the [employer]. Let her know I occassionally go their, but I don't recognize her either. Plans on going home when discharged.
--- NOTE | 2019-10-08 17:00 | NUR ---
Patient sitting up in bed watching tv. Dinner delivered. Assessment completed. Denies needs at this time, call light within reach.
--- NOTE | 2019-10-08 17:30 | NUR ---
Dr. Lua in room to discuss POC with patient. Orders acknowledged.
--- NOTE | 2019-10-08 19:08 | NUR ---
IN ROOM FOR REPORT, PT IS AWAKE IN BED AND DENIES NEEDS AT THIS TIME. CALL LIGHT IS WITHIN REACH.
--- NOTE | 2019-10-08 19:28 | EKG ---
[facility] [address] [place] [address] Signed Sinus bradycardia with premature atrial complexes Otherwise normal ECG When compared with ECG of 29-SEP-2019 14:33, premature atrial complexes are now present Confirmed by JOSEFINA VILLALPANDO MD ([id number]) on 10/08/2019 7:28:26 PM Electronically Signed By: JOSEFINA VILLALPANDO MD 10/08/19 1928 PATIENT NAME: CARA RYANE WANG Electrocardiogram DATE OF : 53 PHYSICIAN: JOSEFINA VILLALPANDO MD REPORT #: [id number] REPORT IS CONFIDENTIAL AND NOT TO BE RELEASED WITHOUT AUTHORIZATION
--- NOTE | 2019-10-08 21:00 | NUR ---
IN ROOM TO ASSESS PT AND ADMINISTER MEDICATIONS. PT REPORTS ITCHING AND HAS A HX OF PSORIASIS. LOTION IS AT BEDSIDE AND BENADRYL ADMINISTERED. ALSO ADMINISTERED OXYCODONE FOR PAIN. DALTON IS DRAINING QS URINE. PUDDING GIVEN ALONG WITH PILL. PT DENIES FURTHER NEEDS AT THIS TIME, CALL LIGHT IS CLOSE AND IV IS INFUSING FINE.
--- NOTE | 2019-10-08 22:35 | NUR ---
IN ROOM TO ADMINISTER ANCEF, PT REPORTS PAIN IS STILL HIGH. ADMINISTERED 2ND PILL OF NORCO AND ADVISED PT SHE WOULD HAVE TO WAIT 4 HOURS IN ORDER TO TAKE 2 AT A TIME. SHE STATES THAT SHE IS HOT, PLACED FAN AT BEDSIDE. SHE DENIES FURTHER NEEDS AT THIS TIME. CALL LIGHT IS CLOSE.
--- NOTE | 2019-10-09 00:09 | NUR ---
PT IS RESTING WITH EYES CLOSED, RR IS EVEN AND NONLABORED. CALL LIGHT IS CLOSE AND CPOX IS WNL.
--- NOTE | 2019-10-09 01:40 | NUR ---
PT IS AWAKE IN BED ON HER PHONE. SHE DENIES NEEDS AT THIS TIME. CALL LIGHT IS CLOSE.
--- NOTE | 2019-10-09 03:02 | NUR ---
ADMINISTERED 2 NORCO FOR PAIN AND BENADRYL FOR ITCHING ALONG WITH SCHEDULED TORADOL. PT STATES SHE IS NOT SLEEPING WELL AND RATES HER PAIN AT 9/10. SHE DESCRIBES THE PAIN WORSE ON THE LEFT SIDE OF HER ABDOMEN LIKE A CLAMP SQUEEZING. VAGINAL PACKING IS IN PLACE ALONG WITH DALTON CATHETER. SHE DENIES NAUSEA AND IS TOLERATING A REGULAR DIET. PT DENIES FURTHER NEEDS. CALL LIGHT IS CLOSE.
--- NOTE | 2019-10-09 03:07 | NUR ---
VITALS AND I&OS DONE AND CHARTED. MADE A PITCHER OF COFFEE FOR HER ROOM PER HER REQUEST. BEDSIDE TABLE AND CALL LIGHT IN REACH. FRESH ICE WATER GIVEN WELL.
--- NOTE | 2019-10-09 03:57 | NUR ---
PT IS RESTING WITH EYES CLOSED, RR IS EVEN AND NONLABORED. CALL LIGHT IS CLOSE AND IV IS INFUSING FINE.
--- NOTE | 2019-10-09 06:00 | NUR ---
KAITLYNN ODONNELL SPOKE WITH PT ABOUT PAIN MEDICINE AND LET HER KNOW IT IS A LITTLE TOO EARLY FOR LOREN.
--- NOTE | 2019-10-09 06:41 | NUR ---
PT REPORTING 9/10 PAIN, PRN PAIN MEDICATION GIVEN. PRIMARY RN RADHA AWARE. FAMILY IN ROOM, DENIES ADDITIONAL NEEDS. CALL LIGHT IN REACH.
--- NOTE | 2019-10-09 07:15 | NUR ---
BEDSIDE HANDOFF REPORT RECEIVED FROM BUMP GRADER OPERATOR RN. PT RESTING IN BED, VISITOR AT BEDSIDE. PT DENIES NEEDS AT THIS TIME.
--- NOTE | 2019-10-09 08:03 | NUR ---
PATIENT SITTING IN BED WITH VISITER IN THE ROOM. ROOM CLEANED. CALL LIGHT IN REACH. NO FURTHER NEEDS AT THIS TIME.
--- NOTE | 2019-10-09 09:40 | NUR ---
PT RESTING IN BED. PT REPORT OF PAIN 8/10 TO RECTAL AREA, LOTS OF PRESSURE, DISUCCSED WITH PT, IV TORADOL GIVEN PER ORDER. PT ON ROOM AIR, LUNG SOUNDS CLEAR. BOWEL TONES ACTIVE, TOLERATING REGULAR DIET. IV SALINE LOCKED PER ORDER, ENCOURAGED ORAL HYDRATION. PT ASSISTED TO STAND AT EDGE OF BED, SBA, DALTON CATH REMOVED PER ORDER. PT DID NOT WANT TO TAKE SENNA OR MINERAL OIL, DISUCSSED PURPOSE OF MEDICATION TO REDUCING BEARING DOWN AFTER SURGERY, PT AGREEABLE TO TAKE. DISCUSSED PLAN OF CARE, POST-VOID RESIDUALS, AND WALKING IN THE COTE. PT DENIES OTHER NEEDS AT THIS TIME.
--- NOTE | 2019-10-09 11:00 | NUR ---
In and spoke with Porsha. She states she is not feeling well today. Pain in bottom. Has not gotten up and thinks she can do so now, but will only do so with Bettye Marinelli. Pt. cont. to go home when she is cleared by the Dr. States she has a lydia daughter in law who will assist her.
--- NOTE | 2019-10-09 11:24 | NUR ---
MED REC COMPLETE
--- NOTE | 2019-10-09 12:30 | NUR ---
PT DUE TO VOID, ASSISTED TO BATHROOM, SLOW TO MOVE BECAUSE OF TAIL BONE PAIN. PT ABLE TO VOID SMALL AMOUNT, MISSED HAT, ASSISTED BACK TO BED. BLADDER SCAN VOLUME FOR 183 ML, ENCOURAGED INCREASE ORAL INTAKE. DR. RANKIN TO ROOM, ENCOURAGED INCREASED AMBULATION. PT COMPLAINT OF NAUSEA, GIVEN 4 MG IV ZOFRAN. PT RATING PAIN TOLERABLER /10. PLAN FOR PT TO EAT LUNHC, INCREWASE ORAL FLUIDS AND THEN TO WALK AND VOID IN ABOUT 1 HOUR, PT AGREEABLE TO PLAN, DENIES OTHER NEEDS AT THIS TIME.
--- NOTE | 2019-10-09 13:34 | NUR ---
PT WALKED IN COTE WITH NURSE AIDE, 1 LAP AROUND NURSING FLOOR.
--- NOTE | 2019-10-09 16:23 | PATH ---
[facility] [facility] [address] [place], [place] [address] Signed SPECIMEN(S): A ENTEROCELE SAC SPECIMEN SOURCE: A. ENTEROCELE SAC CLINICAL HISTORY: Cystocele, rectocele, [place] FINAL PATHOLOGIC DIAGNOSIS: Enterocele sac: - [place] soft tissue, negative for atypical features. JVR:cml:C2NR MICROSCOPIC EXAMINATION: Histologic sections of all submitted blocks are examined by light microscopy. These findings, together with the gross examination, support the pathologic diagnosis. GROSS DESCRIPTION: The specimen, labeled "DK, A and enterocele sac on the requisition," is received in formalin and consists of a 2.6 x 1.1 x 0.2 cm rubbery marks red flat portion of fibromembranous tissue that is trisected and entirely submitted in cassette A1. SS (under the direct supervision of a pathologist) The Gross Description was prepared using a voice recognition system. The report was reviewed for accuracy; however, sound-alike word errors, addition and/or deletions may occur. If there is any question about this report, please contact Client Services. PERFORMING LABORATORY: The technical component was performed by [facility], [address] [place] [address] (Operator Maintainer: Shruti Dhillon MD; CLIA# [id number]). Professional interpretation was [place] [address] (Operator Maintainer: Mook Kang M.D.). Diagnostician: Mook Kang MD Pathologist Electronically Signed 10/09/2019 PATIENT NAME: DEBO RYAN PATHOLOGY DATE OF : 53 REPORT #: [id number] PHYSICIAN: [facility] PATHOLOGY PCP: GAMALIEL VINCENT MD REPORT IS CONFIDENTIAL AND NOT TO BE RELEASED WITHOUT AUTHORIZATION [address] [place], [place] [address] Signed Copies: ~ PATIENT NAME: DEBO RYAN PATHOLOGY DATE OF : 53 REPORT #: [id number] PHYSICIAN: [facility] PATHOLOGY PCP: GAMALIEL VINCENT MD REPORT IS CONFIDENTIAL AND NOT TO BE RELEASED WITHOUT AUTHORIZATION
--- NOTE | 2019-10-09 16:43 | NUR ---
ATTEMPTED TO DO PT EDUCATION, ASKED PT IF THIS WOULD BE OK AND SHE STATED "ABSOLUTELY NOT, I DON'T WANT TO KNOW ANYTHING ABOUT WHAT WAS DONE TO ME BY THAT DR BOURNE (CHUCHO) WAS TRYING TO TELL ME ABOUT IT AND I TOLD HER I DID NOT WANT TO TALK ABOUT IT SO WE HAVEN'T." I ATTEMPTED TO TALK WITH HER ABOUT THE HOSPITAL PT COMFORT SUPPLIES AND SHE JUST SAID "I GOT ALL THAT STUFF AND I DON'T NEED TO TALK ABOUT THAT EITHER." I THEN ATTEMPTED TO TALK WITH HER ABOUT THE MED LIST AND SHE SAID "I DON'T NEED THAT IF MY DR WANTS MY MEDICATIONS SHE CAN LOOK THEM UP ON HER COMPUTER." I THANKED THE PT FOR ALLOWING ME TO COME IN AND VISIT WITH HER. AND I WOULD LEAVE THE PT PACKET IN THE ROOM AND THEY COULD PUT PAPERS GIVEN IN THERE IF THEY WISH.
--- NOTE | 2019-10-09 16:45 | NUR ---
PT RESTING IN BED. PT STATES PAIN TOLERABLE AT 5-6/10. DISCUSSED THAT VOIDING WENT WELL. PT STATES NAUSEA HAS IMPROVED. 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 PT DENIES OTHER NEEDS AT THIS TIME.
--- NOTE | 2019-10-09 17:12 | NUR ---
PT VOIDED 500 ML, WALKED IN COTE WITH PARA EDUCATOR, POST VOID RESIDUAL 69ML.
--- NOTE | 2019-10-09 18:32 | NUR ---
PT ON ROOM AIR, LUNG SOUNDS CLEAR. PT VOIDING WELL AFTER DALTON DC'D THIS AM. PAIN WELL CONTROLLED WITH TORADOL IV, CHANGED TO PO MOTRIN. PT WALKED IN COTE, SBA. NAUSEATED THIS AFTERNOON, ZOFRAN AND PHENERGAN GIVEN. PURITIS THIS AM, SQ NUBAIN.
--- NOTE | 2019-10-09 19:51 | NUR ---
coop with assessment, irritable mood. medicated with scheduled 800mg po Motrin 8 abd and vaginal pain. Had walked hallways earlier with staff, tolerated well, no other c/o. states light vag flow
--- NOTE | 2019-10-09 22:00 | NUR ---
resting, eyes closed, resp even unlabored, call light and fluids at bedside
--- NOTE | 2019-10-09 23:15 | NUR ---
HELPED PT TO THE BATHROOM AND BACK TO BED. DID A BLADDER SCAN FOR 3ML RESIDUAL. FRESH ICE WATER GIVEN. PT ASKED FOR PAIN MEDS. I INFORMED HER RN HOLDEN. PT NEEDS NOTHING MORE AT THIS TIME.
--- NOTE | 2019-10-10 00:33 | NUR ---
medicated with norco 2 tabs c/o 5/10 abd crampingpain. pt up to br earlier, voided,and postvoid bladder scan done, 0-3cc bladder urine leftover scanned.
--- NOTE | 2019-10-10 03:55 | NUR ---
RESTING, EYES CLOSED, NORESP DISTRESS, CALL LIGHT AT BEDSIDE
--- NOTE | 2019-10-10 06:06 | NUR ---
Pt slept off and onthis shift. Was medicated with scheduled Motrin and prn [place] x2 tabs per c/o vaginal/abd pain. scant amount of pink colored vaginal drainage present. SL x1, Walked hallways X2, tolerated well, No sob noted. Voiding QS, post void bladder scanning has been 0-10cc residual. Currently awake, watching tv and drinking decaff coffee, no further c/o pain or n/v. Pt is to be DC'd today.
--- NOTE | 2019-10-10 07:05 | NUR ---
BEDSIDE HANDOFF REPORT RECEIVED FROMNIGHT SHIFT RN. PT RESTING IN BED. PT DENIES NEEDS AT THIS TIME.
--- NOTE | 2019-10-10 07:29 | NUR ---
PATIENT SITTIN UP IN BED WASHING HANDS AND FACE. BY HER BEDSIDE. PATIENT STATES THAT SHE HAS BRUSHED TEETH. PATIENT WOULD LIKE TO SHOWER AT HOME WHEN SHE IS DISCHARED TODAY. FRESH ICE WATER IN CUP NO OTHER NEEDS AT THIS TIME. CALL BUTTON IN REACH.
--- NOTE | 2019-10-10 09:20 | NUR ---
PT RESTING IN BED. PT TO BE DISCHARGED THIS AM. PT ON ROOM AIR, LUNG SOUNDS CLEAR. PT DENIES NAUSEA, TOLERATED BREAKFAST, BOWEL TONES ACTIVE. PT PAIN 8/10, GIVEN SCHEDULED MOTRIN. CMS INTACT, WITHOUT EDEMA. IV SALINE LOCKED. DISCUSSED PLAN OF CARE FOR THE MORNING. PT DENIES OTHER NEEDS AT THIS TIME.
[2019-10-10] MEDS ORDERED: IBU800 MG PO (09:29)
[2019-10-10] MEDS ORDERED: REGLAN10 MG PO (09:30)
[2019-10-10] MEDS ORDERED: KONDREMUL2.5 ML/5 M PO (09:30)
[2019-10-10] MEDS ORDERED: SENNA-EXTRA17.2 MG PO (09:36)
[2019-10-10] MEDS ORDERED: NORCO 5-325 TA1 EACH PO (09:37)
--- NOTE | 2019-10-10 11:10 | NUR ---
PT ALERT, ORIENTED, DRESSED AND WAITING FOR DC. PT SHARED WITH ME SOME PERSONAL HISTORY, LOSING HER AND MOVING HERE TO BE WITH FAMILY. I FOUND PT TO BE PLEASANT, SAID PHAR AND RN HAD NOT YET BEEN IN TO GO OVER DC INSTRUCTIONS. PT REQUESTED PRAYER, WILL FOLLOW NEEDED
--- NOTE | 2019-10-10 11:20 | NUR ---
DISCHARGE INSTRUCTIONS COMPLETED WITH PT. ORAL REGLAN GIVEN PER ORDER. DISCHARGE MEDICATIONS RREVIEWED, NEXT SCHEDULED TIMES LISTED. IV CATH REMOVED. VSS. PT AWAITING RIDE TO ARRIVE.
== END 2019-10-10 12:00 | disposition home or self-care (01) | DRG 748 ==
LOC: MS 10-08 05:35 → DSVR 10-08 05:35 → MS 10-08 06:45 → DSVR 10-08 10:30 → MS 10-10 12:00
PROVIDERS: ADMIT Obstetrics & Gynecology
PROC: 0JQC0ZZ Repair Pelvic Region Subcutaneous Tissue and Fascia, Open Approach (ICD-10-PCS; principal; 2019-10-08 06:45)
PROC: 0JQC0ZZ Repair Pelvic Region Subcutaneous Tissue and Fascia, Open Approach (ICD-10-PCS; 2019-10-08 06:45)
PROC: 0TSD0ZZ Reposition Urethra, Open Approach (ICD-10-PCS; 2019-10-08 06:45)
DX: N81.11 Cystocele, midline (principal); N39.3 Stress incontinence (female) (male); K59.09 Other constipation; E03.9 Hypothyroidism, unspecified; Z79.899 Other long term (current) drug therapy; Z87.891 Personal history of nicotine dependence
CPT/HCPCS: 00942; 36415; 80048; 85025; 88302; 93005; 93010; C1771; J0690; J1100; J1200; J1644; J1885; J2250; J2270; J2274; J2300; J2405; J2550; J2704; J3010; J7121

== ENCOUNTER 2020-03-03 05:50 | Inpatient (IN) | payer MEDICARE, OTHER ==
[~2020-03-03] VITALS: Ht 172.7 cm; Wt 68.0 kg
--- NOTE | ~2020-03-03 | OR ---
[facility] [address] [place], [place] [address] Draft DATE OF OPERATION: 03/03/2020 SURGEON: Radha Lua MD CANDY MAKER HELPER: Debbie Amaya DO. PREOPERATIVE DIAGNOSIS: Uterine prolapse. POSTOPERATIVE DIAGNOSIS: Uterine prolapse. PROCEDURES PERFORMED: Total vaginal hysterectomy, uterosacral cuff suspension. ANESTHESIA: Spinal with IV sedation. ESTIMATED BLOOD LOSS: 25 mL. DRAINS: Cobb catheter. PACKS: None. INDICATIONS AND FINDINGS: The patient is a 64-year-old female, who has developed uterine prolapse. She has undergone prior A and P repair in the past. At the time of surgery, exam under anesthesia revealed the cervix to be within 1 cm of the introitus. The uterus itself was small. Tubes and ovaries were normal. DESCRIPTION OF PROCEDURE: The patient was prepped and draped in the dorsal lithotomy position. A weighted speculum was placed in the posterior cul-de-sac. The anterior and posterior lips of the cervix were grasped with single-tooth tenaculums. The cervix was injected with 1% lidocaine with 1:200,000 epi to a volume of 10 mL. The posterior cul-de-sac was then opened sharply. The [place]ck speculum was placed to the posterior cul-de-sac. The PATIENT NAME: DEBO RYAN OPERATIVE REPORT DATE OF : 53 REPORT #: [id number] PHYSICIAN: RADHA LUA MD PCP: GAMALIEL VINCENT MD REPORT IS CONFIDENTIAL AND NOT TO BE RELEASED WITHOUT AUTHORIZATION [facility] [address] [place], [place] [address] Draft uterosacral ligaments were grasped bilaterally using the curved Z clamps, divided with Lorenzo scissors and suture ligated with 0 Vicryl. This was done bilaterally. Following this, the vaginal mucosa was incised circumferentially with a knife. Sharp dissection was then done, which allowed for identification of the anterior cul-de-sac and the peritoneum was opened sharply at this time. Following this, the uterine vessel areas were grasped bilaterally using the curved Z clamps taking care to incorporate the peritoneum both posteriorly and anteriorly. These were divided and suture ligated with 0 Vicryl. Another bite was taken in the lower portion of the broad ligament on each side, again with each of these divided with the Lorenzo scissors and suture ligated with 0 Vicryl. Following this, remaining broad ligament pedicles could be clamped across and divided. This was followed by free tie of 0 Vicryl, followed by suture ligature of 0 Vicryl. This was done bilaterally. Following this, the vaginal cuff was evaluated and there was some bleeding in the uterine vessel areas on each side, which required [id number] sutures of 0 Vicryl. At this point, good hemostasis was noted. The uterosacral ligaments were then identified. The right uterosacral ligament was much easier to identify than the left. Using 0 Ethibond sutures, 2 sutures were placed on the uterosacral ligaments on each side. One was more proximal and one was approximately 1 cm superior to this. Following this, the sutures were then sutured to the vaginal cuff. The proximal sutures were sutured to the lateral aspects of the anterior and posterior cuff and the more distal sutures were sutured to the more medial portions of the vaginal cuff, again incorporating the posterior and anterior cuffs. This was done bilaterally and these were serially tied. At this point, cystoscopy was done. The Cobb catheter was removed. She had received IV fluorescein. The bladder was inspected and there was no evidence of any bladder injury or sutures present in the bladder. Both of the ureteral orifices had prompt spill of the fluorescein stained urine. Following this, the bladder was drained and the Cobb catheter replaced. At this point, the vaginal cuff was closed by closing the vaginal mucosa over the cuff from one side to the other with a running locking stitch of 0 Vicryl. Good hemostasis was noted. All sponge and needle counts were correct. The patient tolerated the procedure well and was taken to the recovery room in good condition. Radha Lua MD PJW/MODL /[id number] PATIENT NAME: DEBO RYAN OPERATIVE REPORT DATE OF : 53 REPORT #: [id number] PHYSICIAN: RADHA LUA MD PCP: GAMALIEL VINCENT MD REPORT IS CONFIDENTIAL AND NOT TO BE RELEASED WITHOUT AUTHORIZATION [facility] [address] [place] [id number] Draft cc: Dr. Luis A [place] Amaya, DO Copies: DEBBIE AMAYA DO ~ PATIENT NAME: DEBO RYAN OPERATIVE REPORT DATE OF : 53 REPORT #: [id number] PHYSICIAN: RADHA LUA MD PCP: GAMALIEL VINCENT MD REPORT IS CONFIDENTIAL AND NOT TO BE RELEASED WITHOUT AUTHORIZATION
[~2020-03-03 05:50] MED LIST: IBU800 MG PO; KONDREMUL2.5 ML/5 M PO; NORCO 5-325 TA1 EACH PO; REGLAN10 MG PO; SENNA-EXTRA17.2 MG PO; SYNTHROID25 MCG PO
--- NOTE | 2020-03-03 08:48 | NUR ---
03/03/20 0848 Sheets,Blanca 0837 PT ARRIVED TO PACU ON 6L VIA MASK, PT WAKES TO TACTILE STIMULI AND DENIES PAIN AND NAUSEA. 0846 O2 MASK REMOVED AND PLAN OF CARE DISCUSSED. PT UNBALE TO MOVE LEG AND SPINAL EDUCATION GIVEN. PT RESTING IN BED WITH EYES CLOSED.
--- NOTE | 2020-03-03 09:21 | NUR ---
CONTINUOUS PULSE OXIMETER IN PLACE. ICED WATER GIVEN. HOB ELEVATED SLIGHTLY PER PATIENT'S REQUEST.
--- NOTE | 2020-03-03 09:22 | NUR ---
RAMO GREGORY ON WARM.
--- NOTE | 2020-03-03 10:35 | NUR ---
PT ARRIVED TO ROOM 118 AT THIS TIME. ALERT AND ORIENTED, HAS HAD NAUSEA IMPROVING NOW. PT ON ROOM AIR V/S STABLE.
--- NOTE | 2020-03-03 11:34 | NUR ---
PT REPORTS NAUSEA INCREASED, SHE SAID "I FEEL LIKE SHIT" SHE HAS ALREADY HAD TWO DOSES OF ZOFRAN IV IN O.R. AND PACU, AND TRIED SALTINE CRACKERS AND SPRITE (GENERIC SPRITE) , NAUSEA CONTINUES NOW, ADMINISTERED REGLAN 10MG IV AND PEPCID PO. WILL MONITOR CLOSE. NO EMESIS OF THIS TIME.
--- NOTE | 2020-03-03 12:15 | NUR ---
CALLED TO UPDATE PT HAS CONTINUED NAUSEA DESPITE ZOFRAN X2 AND REGLAN X1. V/S STABLE. PT REPORTS SHE FEELS LIKE SHE IS NOT SURE IF SHE FEELS NAUSEA OR DIZZY AT THIS TIME. NEW ORDERS GIVEN
--- NOTE | 2020-03-03 13:10 | NUR ---
PT REPORTS SHE STILL FEELS DIZZY, SCOPE PATCH PLACED. MECLIZINE PO PRN ADMINISTERED.
--- NOTE | 2020-03-03 13:28 | NUR ---
PT FEELS SHE MIGHT NEED TO EAT SOMETHING MORE. MENU PROVIDED. V/S STABLE. SCANT AMOUNT OF DRAINAGE NOTED, NO NEW DRAINAGE FROM ADMIT TO MED/SURG UNIT
--- NOTE | 2020-03-03 13:47 | NUR ---
STOPPED TO CHECK ON PT-SHE REQUESTED I COME BACK LATER
--- NOTE | 2020-03-03 14:35 | NUR ---
PATIENT UP IN BED VISITING WITH RN FAZAL-ORDERING SOMETHING TO SETTLE PATIENTS UPSET STOMACH VITALS DONE BY FAZAL. DALTON EMPTIED AND I&OS CHARTED. CALLL LIGHT IN REACH.
--- NOTE | 2020-03-03 16:54 | NUR ---
PT REPORTS SHE IS STILL SUPER DIZZY AND MISERABLE WITH NAUSEA. PT ADMINISTERED 6.25MG IV PHENERGAN. SHE ALSO REQUESTED VANILLA ICE CREAM.
--- NOTE | 2020-03-03 17:47 | NUR ---
PATIENT SITTING UP IN CHAIR EATING ICE CREAM, VITALS AND I&OS DONE AND CHARTED. DALTON EMPTIED. CALL LIGHT WITHIN REACH. NO OTHER NEEDS AT THIS TIME
--- NOTE | 2020-03-03 17:48 | NUR ---
PT HAS HAD CONTINUOUS POST-OP DIZZINESS AND NAUSEA. SHE HAS HAD MULTIPLE PRN GIVEN THROUGHOUT SHIFT. PT REPORTS NOTHING HAS WORKED. SHE HAS HAD ONE EMESIS OF 300ML. SHE HAS CONTINUED TO TRY TO SNACK MOST RECENTLY TOLERATING ICE CREAM.
--- NOTE | 2020-03-03 19:20 | NUR ---
Bedside report from stefanie noel. pt denies needs, call light in reach.
--- NOTE | 2020-03-03 20:00 | NUR ---
SALAD AND GRAPES WITH CHEESE PROVIDED FOR pt. FAN SET UP. pt SITTING UP IN BED TO EAT, NO REQUESTS AT THIS TIME. CALL LIGHT IN REACH.
--- NOTE | 2020-03-03 22:24 | NUR ---
PT C/O DIZZY AND NAUSEA - 12.5 MG IV PHENERGAN PER ORDER GIVEN, FAN IN RM HELPING - ABLE TO TOLLERATE LIQUIDS. ALERT AND TALKATIVE WITH THIS RN AND TOOL ENGINE LATHE SET UP OPERATOR. ENC. TCDB AND MOVEMENT OF FEET AND LEGS IN BED.
--- NOTE | 2020-03-04 02:48 | NUR ---
pt awakened for vitals - confused but re oriented. rn and charge in for vitals and i/o. pt c/o pain but refuses meds. fresh water to pt. call light in reach .
--- NOTE | 2020-03-04 04:41 | NUR ---
Report received from BLAS Reid.
--- NOTE | 2020-03-04 04:45 | NUR ---
Patient sleeping in bed, respirations even and unlabored. Rouses easily to voice. Vital signs taken. Patient denies further needs at this time, call light within reach.
--- NOTE | 2020-03-04 07:58 | NUR ---
patient in the bed resting. warm washcloth offered and given. patient states she already brushed her teeth. call light within reach. no further needs at this time.
--- NOTE | 2020-03-04 08:10 | NUR ---
PT AWAKE SITTING UP IN BED WATCHING TV AND DRINKING COFFEE
--- NOTE | 2020-03-04 11:05 | NUR ---
MED REC COMPLETE
--- NOTE | 2020-03-04 11:44 | NUR ---
PT REMAINS UP IN THE CHAIR AT THIS TIME, DENIES PAIN AT THIS TIME. PT HAS ORDERED LUNCH ALREADY THIS AM. PT HAS VOIDED ONCE SINCE DALTON CATHETER HAS BEEN REMOVED.
--- NOTE | 2020-03-04 12:00 | NUR ---
Spoke with pt for CM assessment. Pt plans on dc to home when released by . States son lives around the corner and he will assist. Also has neighbors who will help her. 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 She lives in a duplex with a basement where the washer and dryer are. There are hand rails. Pt denies needs for dc.
--- NOTE | 2020-03-04 14:09 | PATH ---
[facility] [address] [place], [place] [address] Signed SPECIMEN(S): A UTERUS, PROLAPSE AND CERVIX SPECIMEN SOURCE: A. UTERUS, PROLAPSE AND CERVIX CLINICAL HISTORY: Uterovaginal prolapse FINAL PATHOLOGIC DIAGNOSIS: Uterus and cervix, hysterectomy: - Cervix: Acute and chronic inflammation with reactive epithelial changes. - Endometrium: Weakly proliferative endometrium. - Myometrium: No histopathologic abnormality. - Serosa: No histopathologic abnormality. - Negative for malignancy. NAL:cml:C2NR MICROSCOPIC EXAMINATION: Histologic sections of all submitted blocks are examined by light microscopy. These findings, together with the gross examination, support the pathologic diagnosis. GROSS DESCRIPTION: The specimen, labeled "DK," and designated on the requisition "cervix, uterus," is received in formalin and consists of a 61 g uterus (5.0 x 4.6 x 2.7 cm) with attached cervix with pink-marsk mucosa and mucosal tissue (4.0 cm in length x 4.5 cm in width). The serosa is pink-marks and smooth. The specimen is opened to reveal a cervical canal (3.0 cm meters in length and ranging in diameter from 0.8 to 1.8 cm) and an endometrial canal (3.7 cm superior to inferior, and 2.2 cm cornu to cornu) containing a straw-colored mucoid fluid, and with a endometrial thickness of 0.1 cm). Sectioning reveals a pink-marks myometrium. Radio Survey Worker sections are submitted as follows: (A1) anterior and posterior cervix with mucosal tissue (A2) anterior and posterior endomyometrium, full thickness AC (under the direct supervision of a pathologist) The Gross Description was prepared using a voice recognition system. The report was reviewed for accuracy; however, sound-alike word errors, addition and/or deletions may occur. If there is any PATIENT NAME: DEBO RYAN PATHOLOGY DATE OF : 53 REPORT #: [id number] PHYSICIAN: [facility] PATH[facility] PCP: GAMALIEL VINCENT MD REPORT IS CONFIDENTIAL AND NOT TO BE RELEASED WITHOUT AUTHORIZATION [facility] [address] [place] [address] Signed question about this report, please contact Client Services. PERFORMING LABORATORY: The technical component was performed [place] [address] (Yarn Texture Machine Operator: Shruti Dhillon MD; CLIA# [id number]). Professional interpretation was performed by [facility], [address] [address] (CLIA# [id number]). Diagnostician: Krista Powell MD Pathologist Electronically Signed 03/04/2020 Copies: ~ PATIENT NAME: DEBO RYAN PATHOLOGY DATE OF : 53 REPORT #: [id number] PHYSICIAN: [facility] PATH[facility] PCP: GAMALIEL VINCENT MD REPORT IS CONFIDENTIAL AND NOT TO BE RELEASED WITHOUT AUTHORIZATION
--- NOTE | 2020-03-04 14:36 | NUR ---
PT AMBULATED IN THE COTE WITH NURSING STAFF, PT DID WELL.
--- NOTE | 2020-03-04 15:05 | NUR ---
PHONE CALL TO DR RANKIN, REPORTED VOIDS AND POST VOID FROM BLADDER SCAN. EXPLAINED TO PT THAT DR RANKIN WILL COME AND SHE HER AFTER OFFICE HOURS.
--- NOTE | 2020-03-04 16:30 | NUR ---
patient refused a shower, but she accepted the bath wipes to do a full bed bath.
--- NOTE | 2020-03-04 17:02 | NUR ---
PT REMAINS UP IN THE CHAIR NO C/O'S AT THIS TIME.
--- NOTE | 2020-03-04 17:11 | NUR ---
DR RANKIN INTO SEE PT AND PT WILL BE DISCHARGED THIS PM. DINNER IS HERE.
--- NOTE | 2020-03-04 17:16 | NUR ---
DR RANKIN INTO SEE PT AND PT IS DISCHARGE TO HOME.
[2020-03-04] MEDS ORDERED: MECLIZINE HCL25 MG PO (17:18)
[2020-03-04] MEDS ORDERED: ONDANSETRON ODT8 MG PO (17:19)
[2020-03-04] MEDS ORDERED: IBU800 MG PO (17:19)
--- NOTE | 2020-03-04 17:49 | NUR ---
pt discharged to home all questions answered, medications can be picked up at [facility] pharmacy they are open till 19:00. Pt ambulated out wc was offered and pt wanted to walk out. Nursing staff walked pt to the front door. Pt's son will come and pick her up.
== END 2020-03-04 17:50 | disposition home or self-care (01) | DRG 743 ==
LOC: DS 05:50 → MS 08:37
PROVIDERS: ADMIT Obstetrics & Gynecology
PROC: 0UT97ZZ Resection of Uterus, Via Natural or Artificial Opening (ICD-10-PCS; principal; 2020-03-03 06:45)
PROC: 0USGXZZ Reposition Vagina, External Approach (ICD-10-PCS; 2020-03-03 06:45)
DX: N81.2 Incomplete uterovaginal prolapse (principal); R42 Dizziness and giddiness; E03.9 Hypothyroidism, unspecified; K59.00 Constipation, unspecified; Z87.891 Personal history of nicotine dependence; Z79.899 Other long term (current) drug therapy; Z79.1 Long term (current) use of non-steroidal anti-inflammatories (NSAID)
CPT/HCPCS: 00944; 85025; 88305; J0694; J1100; J1644; J1885; J2001; J2250; J2274; J2405; J2550; J2704; J2765; J3010; J7121